=== PATIENT | male | born 1945 | race Caucasian/White ===

== ENCOUNTER 2018-10-03 13:54 | Emergency (ER) | payer MEDICARE, MEDICAID ==
[~2018-10-03] VITALS: Ht 188 cm; Wt 79.4 kg
[2018-10-03 14:10] VITALS: BP 132/65
[2018-10-03] MEDS ORDERED: NKM (14:25)
[2018-10-03] MEDS ORDERED: Ketorolac 30mg Inj IV ONE (14:30)
[2018-10-03] MEDS ORDERED: Isovue-300 100ml vial INJ PRN (14:30)
[2018-10-03 14:41] LABS: BASOPHILS % (AUTO) 0.7 % (0.0-2.0); EOSINOPHILS % (AUTO) 0.3 % (0.0-3.0); HEMATOCRIT 47.4 % (42.0-52.0); HEMOGLOBIN 15.9 G/DL (14.2-18.0); LYMPHOCYTES % (AUTO) 19.1 % (20.0-45.0); MEAN CORPUSCULAR VOLUME 93 FL (80-99); MONOCYTES % (AUTO) 8.7 % (1.0-10.0); NEUTROPHILS % (AUTO) 71.2 % (45.0-75.0); PLATELET COUNT 252 K/UL (150-450); RED BLOOD COUNT 5.11 M/UL (4.70-6.10); RED CELL DISTRIBUTION WIDTH 11.8 % (11.6-14.8); WHITE BLOOD COUNT 9.1 K/UL (4.8-10.8)
[2018-10-03 14:45] LABS: ANION GAP 9 mmol/L (5-15); BLOOD UREA NITROGEN 10 mg/dL (7-18); CALCIUM 8.8 MG/DL (8.5-10.1); CARBON DIOXIDE 27 MMOL/L (21-32); CHLORIDE 99 MMOL/L (98-107); CREATININE 0.8 MG/DL (0.55-1.30); SODIUM 135 MMOL/L (136-145)
[2018-10-03 14:54] LABS: APPEARANCE,URINE CLEAR; BILIRUBIN, URINE NEGATIVE (NEGATIVE); COLOR,URINE BROWN; GLUCOSE, URINE (UA) NEGATIVE (NEGATIVE); KETONES,URINE 3+ (NEGATIVE); LEUKOCYTE ESTERASE ,URINE NEGATIVE (NEGATIVE); NITRITE,URINE NEGATIVE (NEGATIVE); PH,URINE 6 (4.5-8.0); PROTEIN,URINE 1+ (NEGATIVE); UROBILINOGEN,URINE 4 MG/DL (0.0-1.0)
[2018-10-03 14:56] LABS: ALANINE AMINOTRANSFERASE 14 U/L (12-78); ALBUMIN 3.1 G/DL (3.4-5.0); ALBUMIN/GLOBULIN RATIO 0.9 (1.0-2.7); ALKALINE PHOSPHATASE 96 U/L (46-116); ASPARTATE AMINO TRANSFERASE 16 U/L (15-37); BILIRUBIN,DIRECT 0.2 MG/DL (0.0-0.3); BILIRUBIN,TOTAL 1.2 MG/DL (0.2-1.0)
--- NOTE | 2018-10-03 15:24 | Emergency Room Report ---
History of Present Illness General Chief Complaint: Generalized Weakness Source: Patient Present Illness HPI 72-year-old male presents ED for evaluation. Patient states he's been experiencing weakness and dizziness for the last few months. On and off. States he has a poor appetite. Also states that he has a hernia in his left inguinal area. Has been there for "months". States it is getting bigger. Denies fevers or chills. States he's having bowel movements. States that he goes to a clinic and they told him to wear tight fitting pants. Denies chest pain or shortness of breath. Denies fevers or chills. No other aggravating relieving factors. Denies any other associated symptoms Allergies: Coded Allergies: No Known Allergies (Unverified , 10/03/18) Patient History Past Medical History: none Past Surgical History: none Pertinent Family History: none Social History: Denies: smoking, alcohol use, drug use Immunizations: UTD Reviewed Nursing Documentation: PMH: Agreed; PSxH: Agreed Nursing Documentation-PMH Past Medical History: No Stated History Review of Systems All Other Systems: negative except mentioned in HPI Physical Exam Vital Signs Date Time Temp Pulse Resp B/P (MAP) Pulse Ox O2 Delivery O2 Flow Rate FiO2 10/03/18 13:57 98.4 99 16 133/76 91 Room Air Sp02 EP Interpretation: reviewed, normal General Appearance: no apparent distress, alert, GCS 15, non-toxic Head: normocephalic, atraumatic Eyes: bilateral eye normal inspection, bilateral eye PERRL ENT: hearing grossly normal, normal pharynx, no angioedema, normal voice Neck: full range of motion, supple/symm/no masses Respiratory: chest non-tender, lungs clear, normal breath sounds, speaking full sentences Cardiovascular #1: regular rate, rhythm, no edema Cardiovascular #2: 2+ carotid (R), 2+ carotid (L), 2+ radial (R), 2+ radial (L) , 2+ dorsalis pedis (R), 2+ dorsalis pedis (L) Gastrointestinal: normal bowel sounds, soft, non-distended, no guarding, no rebound, tenderness - L inguinal pain/swelling Rectal: deferred Genitourinary: normal inspection, no CVA tenderness Musculoskeletal: back normal, gait/station normal, normal range of motion, non- tender Neurologic: alert, oriented x3, responsive, motor strength/tone normal, sensory intact, speech normal Psychiatric: judgement/insight normal, memory normal, mood/affect normal, no suicidal/homicidal ideation Reflexes: 3+ bicep (R), 3+ bicep (L), 3+ tricep (R), 3+ tricep (L), 3+ knee (R) , 3+ knee (L) Skin: normal color, no rash, warm/dry, well hydrated Lymphatic: no adenopathy Medical Decision Making Diagnostic Impression: Primary Impression: Episode of generalized weakness Additional Impression: Inguinal hernia of left side without obstruction or gangrene ER Course Hospital Course 72-year-old M presents to ED with L inguinal swelling, c/o weakness. Differential diagnosis includes-appendicitis, cholecystitis, small bowel obstruction, gastritis, Clinical course Patient placed on stretcher. After initial history, physical exam reveals male in no acute distress. On exam there is a swelling to the left lower inguinal area. No induration. No erythema. Consistent with hernia. not Reducible. No scrotal pain. After initial history and physical I ordered labs, IV fluids, EKG, CT Labs unremarkable EKGafib CT A/P - left inguinal hernia with small segment of sigmoid. No obstruction or incarceration. No dilated loops of bowel. Discussed findings with the patient. Patient is not vomiting. Having bowel movements. No clinical signs of obstruction. Patient safely discharged at this time. case discussed with Dr Jolley (surgery); agrees that if there is no sign of obstruction on CT and patient is not clinically obstructed he can be discharged with referrals States he does not have a PMD. I'll provide with PMD referrals and surgical referrals I feel this is a highly complex case requiring extensive working including EKG/ Rhythm strip, Xray/CT/US, Blood/urine lab work, repeat exams while in ED, and administration of strong opiates/narcotics for pain control, admission to hospital or close patient follow up. Diagnosis - episode of generalized weakness, inguinal hernia of left side without obstrution or gangree Stable and discharged to home with Rx Tylenol #3, zofran. Followup with PMD/ surgery. Return to ED if symptoms recur or worsen Labs Test 10/03/18 14:25 10/03/18 14:28 White Blood Count 9.1 K/UL (4.8-10.8) Red Blood Count 5.11 M/UL (4.70-6.10) Hemoglobin 15.9 G/DL (14.2-18.0) Hematocrit 47.4 % (42.0-52.0) Mean Corpuscular Volume 93 FL (80-99) Mean Corpuscular Hemoglobin 31.1 PG (27.0-31.0) Mean Corpuscular Hemoglobin Concent 33.5 G/DL (32.0-36.0) Red Cell Distribution Width 11.8 % (11.6-14.8) Platelet Count 252 K/UL (150-450) Mean Platelet Volume 6.2 FL (6.5-10.1) Neutrophils (%) (Auto) 71.2 % (45.0-75.0) Lymphocytes (%) (Auto) 19.1 % (20.0-45.0) Monocytes (%) (Auto) 8.7 % (1.0-10.0) Eosinophils (%) (Auto) 0.3 % (0.0-3.0) Basophils (%) (Auto) 0.7 % (0.0-2.0) Sodium Level 135 MMOL/L (136-145) Potassium Level 4.0 MMOL/L (3.5-5.1) Chloride Level 99 MMOL/L (98-107) Carbon Dioxide Level 27 MMOL/L (21-32) Anion Gap 9 mmol/L (5-15) Blood Urea Nitrogen 10 mg/dL (7-18) Creatinine 0.8 MG/DL (0.55-1.30) Estimat Glomerular Filtration Rate > 60 mL/min (>60) Glucose Level 106 MG/DL (74-106) Calcium Level 8.8 MG/DL (8.5-10.1) Total Bilirubin 1.2 MG/DL (0.2-1.0) Direct Bilirubin 0.2 MG/DL (0.0-0.3) Aspartate Amino Transf (AST/SGOT) 16 U/L (15-37) Alanine Aminotransferase (ALT/SGPT) 14 U/L (12-78) Alkaline Phosphatase 96 U/L (46-116) Total Protein 6.6 G/DL (6.4-8.2) Albumin 3.1 G/DL (3.4-5.0) Globulin 3.5 g/dL Albumin/Globulin Ratio 0.9 (1.0-2.7) Lipase 155 U/L (73-393) Urine Color Brown Urine Appearance Clear Urine pH 6 (4.5-8.0) Urine Specific [place] 1.015 (1.005-1.035) Urine Protein 1+ (NEGATIVE) Urine Glucose (UA) Negative (NEGATIVE) Urine Ketones 3+ (NEGATIVE) Urine Blood 2+ (NEGATIVE) Urine Nitrite Negative (NEGATIVE) Urine Bilirubin Negative (NEGATIVE) Urine Urobilinogen 4 MG/DL (0.0-1.0) Urine Leukocyte Esterase Negative (NEGATIVE) Urine RBC 2-4 /HPF (0 - 0) Urine WBC 0 /HPF (0 - 0) Urine Squamous Epithelial Cells None /LPF (NONE/OCC) Urine Bacteria None /HPF (NONE) Urine Mucus Few /LPF (NONE/OCC) EKG Diagnostic Results Rate: normal Rhythm: other - afib ST Segments: no acute changes ASA given to the pt in ED: No Rhythm Strip Diag. Results EP Interpretation: yes Rhythm: no PVC's, no ectopy CT/MRI/US Diagnostic Results CT/MRI/US Diagnostic Results : Imaging Test Ordered: CT A/P Impression L inguinal hernia with 'knuckle' of sigmoid. no obstruction or incarceration Last Vital Signs Date Time Temp Pulse Resp B/P (MAP) Pulse Ox O2 Delivery O2 Flow Rate FiO2 10/03/18 15:06 98.1 10/03/18 14:10 72 17 Room Air 10/03/18 14:10 132/65 98 Status: improved Disposition: HOME, SELF-CARE Condition: Stable Scripts Ondansetron Odt* (ZOFRAN ODT*) 4 Mg Tab.rapdis 4 MG BC EVERY 6 HOURS PRN for Nausea & Vomiting, #30 TAB 0 Refills Prov: Bari Ramírez MD 10/03/18 Acetaminophen With Codeine (T#3) (TYLENOL #3 TAB*) Y Tab 1 TAB ORAL Q8H PRN for For Pain, #20 TAB Prov: Bari Ramírez MD 10/03/18 Referrals: NOT CHOSEN IPA/,REFERRING (PCP) Bari Ramírez MD Oct 03, 2018 15:24
--- NOTE | 2018-10-03 15:28 | Diagnostic Imaging Report ---
Clinical Indication: Abdominal pain. Left inguinal hernia Technique: No oral contrast utilized, per emergency room physician request IV administration nonionic contrast. Venous phase spiral acquisition obtained through the abdomen and pelvis. Multiplanar reconstructions were generated. Total dose length product 574.01 mGycm. CTDIvol(s) 11.49 mGy. Dose reduction achieved using automated exposure control Comparison: none Findings: Lack of enteric contrast limits assessment of the GI tract. There is a left inguinal hernia, probably a direct inguinal hernia, containing a knuckle of proximal sigmoid colon. This does not appear to result in any obstruction or strangulation, as there is no proximal dilatation and no infiltration of the mesentery within the hernia sac.. There is colonic diverticulosis. No evidence of diverticulitis. The appendix is normal. No small bowel distention. No free or loculated intraperitoneal gas or fluid. Distal esophagus, stomach, duodenum are unremarkable. There is a small fat-containing umbilical hernia. The liver demonstrates a subcentimeter low-attenuation lesion in segment 5 and a few others in segment 3. The gallbladder, bile ducts, pancreas, spleen, adrenals are unremarkable. The kidneys demonstrate bilateral cysts. They also demonstrate bilateral subcentimeter low-attenuation lesions which are too small to characterize no retroperitoneal or mesenteric mass or adenopathy. There is fusiform ectasia of the abdominal aorta which is nonetheless not aneurysmal. 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 The left common iliac artery is ectatic but not quite aneurysmal, measuring 18 mm. No pelvic mass or adenopathy. Prominent prostate. The included lung bases are clear. There is levoscoliosis and secondary degenerative change of the lumbar spine Impression: Limited assessment of the GI tract, due to lack of enteric contrast administration Left inguinal hernia, probably a direct inguinal hernia, containing a knuckle of proximal sigmoid colon. No findings to suggest obstruction or angulation. Colonic diverticulosis. 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 Bilateral subcentimeter low-attenuation renal and hepatic lesions are too small to characterize, most likely benign simple cysts Lumbar scoliosis and secondary degenerative changes Incidental finding small fat-containing umbilical hernia The CT scanner at [facility] is accredited by the [employer] and the scans are performed using protocols designed to limit radiation exposure to as low as reasonably achievable to attain images of sufficient resolution adequate for diagnostic evaluation.
[2018-10-03] MEDS ORDERED: ACETAMINOPHEN-1 EAC1 ORAL (16:01)
[2018-10-03] MEDS ORDERED: ONDANSETRON ODT4 MG BC (16:01)
[2018-10-03 16:58] VITALS: BP 123/71
--- NOTE | 2018-10-05 14:13 | Cardiology Report ---
APPROVED REPORT EKG Measurement Heart [id number] Atrial fibrillation Incomplete right bundle branch block Abnormal ECG
== END 2018-10-03 16:10 | disposition home or self-care (01) ==
LOC: EMR 14:32
DX: K40.90 Unilateral inguinal hernia, without obstruction or gangrene, not specified as recurrent (principal); R53.1 Weakness
CPT/HCPCS: 36415; 74177; 80053; 81003; 82248; 83690; 85025; 93005; 96361; 96374; 96375; 99284; J1885; J2405; Q9967

== ENCOUNTER 2019-06-22 12:33 | Emergency (ER) | payer MEDICARE, MEDICAID ==
[~2019-06-22] VITALS: Ht 175.3 cm; Wt 68.0 kg
[~2019-06-22 12:33] MED LIST: ACETAMINOPHEN-1 EAC1 ORAL; NKM; ONDANSETRON ODT4 MG BC
[2019-06-22 12:49] VITALS: BP 93/77
--- NOTE | 2019-06-22 12:49 | NUR ---
ED Nurse Note: Pt from home brought in by his friend due to multiple episodes of fall and weakness for weeks. Pt reports whenever he stands up he feels dizzy and falls. Friend dulce states pt fell and hit his head on the floor. Pt is AAO x4 and ambulates with his walker at home. No respiratory distress. Able to move all extremities. Noted abrasions on left elbow and left knee. Also observed swelling of left ankle. Some old bruising on upper arms. No hematoma on his head.
[2019-06-22] MEDS ORDERED: NKM (12:55)
[2019-06-22 13:39] LABS: BASOPHILS % (AUTO) 0.9 % (0.0-2.0); EOSINOPHILS % (AUTO) 0.6 % (0.0-3.0); HEMATOCRIT 50.1 % (42.0-52.0); HEMOGLOBIN 16.5 G/DL (14.2-18.0); LYMPHOCYTES % (AUTO) 17.9 % (20.0-45.0); MEAN CORPUSCULAR VOLUME 98 FL (80-99); MONOCYTES % (AUTO) 9.9 % (1.0-10.0); NEUTROPHILS % (AUTO) 70.7 % (45.0-75.0); PLATELET COUNT 205 K/UL (150-450); RED BLOOD COUNT 5.12 M/UL (4.70-6.10); RED CELL DISTRIBUTION WIDTH 12.8 % (11.6-14.8); WHITE BLOOD COUNT 8.9 K/UL (4.8-10.8)
[2019-06-22 13:41] LABS: APPEARANCE,URINE CLEAR; BILIRUBIN, URINE NEGATIVE (NEGATIVE); COLOR,URINE BROWN; GLUCOSE, URINE (UA) NEGATIVE (NEGATIVE); KETONES,URINE 2+ (NEGATIVE); LEUKOCYTE ESTERASE ,URINE 1+ (NEGATIVE); NITRITE,URINE NEGATIVE (NEGATIVE); PH,URINE 5 (4.5-8.0); PROTEIN,URINE 1+ (NEGATIVE); UROBILINOGEN,URINE 1 MG/DL (0.0-1.0)
[2019-06-22 14:17] LABS: ANION GAP 9 mmol/L (5-15); BLOOD UREA NITROGEN 15 mg/dL (7-18); CALCIUM 9.5 MG/DL (8.5-10.1); CARBON DIOXIDE 30 MMOL/L (21-32); CHLORIDE 106 MMOL/L (98-107); CREATININE 0.8 MG/DL (0.55-1.30); POTASSIUM 4.2 MMOL/L (3.5-5.1); SODIUM 145 MMOL/L (136-145)
--- NOTE | 2019-06-22 14:20 | Emergency Room Report ---
History of Present Illness General Chief Complaint: Generalized Weakness Source: Patient Present Illness HPI 73-year-old male history of greater than 30 pack years of smoking, atrial fibrillation, inguinal hernia presents with generalized weakness x2 weeks worsening constant severity is moderate, unknown aggravating alleviating factors , patient last night fell hit his head no LOC, patient denies any chest pain shortness of breath, roommate is concerned because he does not eat, reduced appetite, looks dehydrated patient states he feels weaker than normal but no other complaints Allergies: Coded Allergies: No Known Allergies (Unverified , 10/03/18) Patient History Past Medical History: see triage record Social History: Reports: smoking Reviewed Nursing Documentation: PMH: Agreed; PSxH: Agreed Nursing Documentation-PMH Past Medical History: No History, Except For Hx Cardiac Problems: No Hx Hypertension: No Hx Pacemaker: No Hx Asthma: No - 'Left lung problem' Hx COPD: No Hx Diabetes: No Hx Cancer: No Hx Gastrointestinal Problems: No Hx Dialysis: No History Of Psychiatric Problem: No Hx Neurological Problems: No Hx Cerebrovascular Accident: No Hx Seizures: No Review of Systems All Other Systems: negative except mentioned in HPI Physical Exam Vital Signs Date Time Temp Pulse Resp B/P (MAP) Pulse Ox O2 Delivery O2 Flow Rate FiO2 06/22/19 12:39 98.1 91 18 102/69 (80) 98 Room Air Sp02 EP Interpretation: reviewed, normal General Appearance: no apparent distress, alert, cachetic Head: normocephalic, atraumatic Eyes: bilateral eye PERRL, bilateral eye EOMI ENT: uvula midline, dry mucus membranes Neck: supple, thyroid normal, supple/symm/no masses Respiratory: lungs clear, no respiratory distress, no retraction, no accessory muscle use Cardiovascular #1: normal peripheral pulses, no edema, no gallop, no murmur, tachycardia Gastrointestinal: non tender, soft, no guarding, no rebound Musculoskeletal: normal inspection Neurologic: alert, oriented x3 Psychiatric: mood/affect normal Skin: no rash, warm/dry Medical Decision Making Diagnostic Impression: Primary Impression: Episode of generalized weakness Additional Impressions: Failure to thrive Qualified Codes: R62.7 - Adult failure to thrive Dehydration ER Course 73-year-old male resents with multiple comorbidities, frequent falls, concerning for failure to thrive, dehydration Will rehydrate patient, will admit patient for observation and failure to thrive , patient is very cachectic Patient given 1L NS Will admit patient for observation Patient to be transferred to Dr. Ashby 3:26pm Laboratory Tests Test 06/22/19 13:00 06/22/19 13:15 White Blood Count 8.9 K/UL (4.8-10.8) Red Blood Count 5.12 M/UL (4.70-6.10) Hemoglobin 16.5 G/DL (14.2-18.0) Hematocrit 50.1 % (42.0-52.0) Mean Corpuscular Volume 98 FL (80-99) Mean Corpuscular Hemoglobin 32.2 PG (27.0-31.0) H Mean Corpuscular Hemoglobin Concent 33.0 G/DL (32.0-36.0) Red Cell Distribution Width 12.8 % (11.6-14.8) Platelet Count 205 K/UL (150-450) Mean Platelet Volume 7.8 FL (6.5-10.1) Neutrophils (%) (Auto) 70.7 % (45.0-75.0) Lymphocytes (%) (Auto) 17.9 % (20.0-45.0) L Monocytes (%) (Auto) 9.9 % (1.0-10.0) Eosinophils (%) (Auto) 0.6 % (0.0-3.0) Basophils (%) (Auto) 0.9 % (0.0-2.0) Prothrombin Time 10.8 SEC (9.30-11.50) Prothrombin Time INR 1.0 (0.9-1.1) PTT 28 SEC (23-33) Sodium Level 145 MMOL/L (136-145) Potassium Level 4.2 MMOL/L (3.5-5.1) Chloride Level 106 MMOL/L (98-107) Carbon Dioxide Level 30 MMOL/L (21-32) Anion Gap 9 mmol/L (5-15) Blood Urea Nitrogen 15 mg/dL (7-18) Creatinine 0.8 MG/DL (0.55-1.30) Estimate Glomerular Filtration Rate mL/min (>60) Glucose Level 86 MG/DL (74-106) Calcium Level 9.5 MG/DL (8.5-10.1) Phosphorus Level 3.5 MG/DL (2.5-4.9) Magnesium Level 1.7 MG/DL (1.8-2.4) L Total Bilirubin 1.2 MG/DL (0.2-1.0) H Direct Bilirubin 0.3 MG/DL (0.0-0.3) Aspartate Amino Transferase (AST) 22 U/L (15-37) Alanine Aminotransferase (ALT) 18 U/L (12-78) Alkaline Phosphatase 82 U/L (46-116) Total Creatine Kinase 55 U/L (26-308) Creatine Kinase MB 1.4 NG/ML (0.0-3.6) Creatine Kinase MB Relative Index 2.5 Troponin I 0.000 ng/mL (0.000-0.056) Pro-B-Type Natriuretic Peptide 290 pg/mL (0-125) H Total Protein 7.4 G/DL (6.4-8.2) Albumin 3.5 G/DL (3.4-5.0) Globulin 3.9 g/dL Albumin/Globulin Ratio 0.9 (1.0-2.7) L Lipase 137 U/L (73-393) Thyroid Stimulating Hormone (TSH) 2.312 uiU/mL (0.358-3.740) Free Thyroxine 1.13 NG/DL (0.76-1.46) Free Triiodothyronine 1.7 pg/mL (2.3-4.2) L Urine Color Brown Urine Appearance Clear Urine pH 5 (4.5-8.0) Urine Specific [place] 1.025 (1.005-1.035) Urine Protein 1+ (NEGATIVE) H Urine Glucose (UA) Negative (NEGATIVE) Urine Ketones 2+ (NEGATIVE) H Urine Blood 1+ (NEGATIVE) H Urine Nitrite Negative (NEGATIVE) Urine Bilirubin Negative (NEGATIVE) Urine Urobilinogen 1 MG/DL (0.0-1.0) H Urine Leukocyte Esterase 1+ (NEGATIVE) H Urine RBC 2-4 /HPF (0 - 0) H Urine WBC 0-2 /HPF (0 - 0) Urine Squamous Epithelial Cells Occasional /LPF Urine Bacteria Occasional /HPF (NONE) Urine Mucus Moderate /LPF (NONE/OCC) H EKG Diagnostic Results EKG Time: 12:51 EP Interpretation: Atrial fibrillation, rate 97, QTc 391, no acute ST elevations, normal axis Rhythm Strip Diag. Results Rhythm Strip Time: 14:23 EP Interpretation: yes Rate: 65 Rhythm: no PVC's, other - atrial fib Chest X-Ray Diagnostic Results Chest X-Ray Diagnostic Results : Chest X-Ray Ordered: Yes # of Views/Limited/Complete: 1 View Indication: Other - weakness EP Interpretation: Yes Interpretation: no consolidation, no effusion, no pneumothorax, no acute cardiopulmonary disease Impression: Other - No acute disease, pulmonary nodules left side Electronically Signed by: Melvin Childress MD CT/MRI/US Diagnostic Results CT/MRI/US Diagnostic Results : Impression Ct Head: No acute processes Last Vital Signs Date Time Temp Pulse Resp B/P (MAP) Pulse Ox O2 Delivery O2 Flow Rate FiO2 06/22/19 12:49 80 15 Room Air 06/22/19 12:49 98.1 93/77 96 Disposition: ER [facility] [place] Condition: Stable Referrals: Curt Crowe MD (PCP) Melvin Childress MD Jun 22, 2019 14:20
[2019-06-22 14:32] LABS: ALANINE AMINOTRANSFERASE 18 U/L (12-78); ALBUMIN 3.5 G/DL (3.4-5.0); ALBUMIN/GLOBULIN RATIO 0.9 (1.0-2.7); ALKALINE PHOSPHATASE 82 U/L (46-116); ASPARTATE AMINO TRANSFERASE 22 U/L (15-37); BILIRUBIN,TOTAL 1.2 MG/DL (0.2-1.0); CKMB 1.4 NG/ML (0.0-3.6); CREATINE KINASE 55 U/L (26-308); PHOSPHORUS 3.5 MG/DL (2.5-4.9)
[2019-06-22 14:45] VITALS: BP 120/78
[2019-06-22 14:47] LABS: BILIRUBIN,DIRECT 0.3 MG/DL (0.0-0.3)
--- NOTE | 2019-06-22 15:14 | NUR ---
ED Nurse Note: Pt is sleeping on his bed with no distress. Fall precautions implemented; both side rails up with bed locked in lowest position.
--- NOTE | 2019-06-22 15:16 | Diagnostic Imaging Report ---
Indication: Shortness of breath Technique: One view of the chest Comparison: none Findings: Multiple nodular opacities are seen in the left mid and lower lung, possibly calcified. Lungs are hyperinflated. Lungs and pleural spaces are otherwise clear. The heart size is normal. The aorta is tortuous. Impression: Multiple left lung nodules, possibly calcified granulomata. Consider comparison with prior studies or further evaluation with chest CT as clinically indicated No acute process otherwise
--- NOTE | 2019-06-22 15:47 | Diagnostic Imaging Report ---
Indications: Head trauma, multiple falls due to weakness Technique: Spiral acquisitions obtained through the brain. Angled axial and coronal 5 x 5 mm slices were reconstructed. Total dose length product 1478 mGycm. CTDI vol(s) 7d mGy. Dose reduction achieved using automated exposure control Comparison: 06/22/2019 Findings: There is age-related enlargement of the ventricles and extra axial CSF spaces. There is particular prominence of the extra axial CSF in the left temporal tip. This is probably due to asymmetric volume loss but could also represent a small arachnoid cyst. There is some focal cystic encephalomalacia involving the right temporal tip. There is periventricular deep white matter low-attenuation consistent with chronic microvascular ischemic changes no acute intracranial hemorrhage or edema. No mass effect nor midline shift. There is less orbits are unremarkable. The mastoids are clear. The sinuses are grossly clear. The calvarium is intact Impression: Chronic and age-related changes, as described Negative for acute intracranial bleed or mass effect The CT scanner at [facility] is accredited by the [employer] and the scans are performed using protocols designed to limit radiation exposure to as low as reasonably achievable to attain images of sufficient resolution adequate for diagnostic evaluation.
[2019-06-22 16:18] VITALS: BP 139/86
--- NOTE | 2019-06-22 16:18 | NUR ---
ED Nurse Note: Report given to Leah WARREN of [facility] and [facility] ambulance staff. Pt transferred via gurney with all belongings sent. Stable for transfer.
--- NOTE | 2019-06-23 17:20 | Cardiology Report ---
APPROVED REPORT EKG Measurement Heart [id number] Atrial fibrillation Incomplete right bundle branch block Abnormal ECG
== END 2019-06-22 16:30 | disposition short-term general hospital (02) ==
LOC: EMR 12:54
DX: R62.7 Adult failure to thrive (principal); E86.0 Dehydration; F17.200 Nicotine dependence, unspecified, uncomplicated; I48.91 Unspecified atrial fibrillation; R53.1 Weakness; S09.90XA Unspecified injury of head, initial encounter; W18.30XA Fall on same level, unspecified, initial encounter; Y92.9 Unspecified place or not applicable
CPT/HCPCS: 36415; 70450; 71045; 80053; 81003; 82248; 82550; 82553; 83690; 83735; 83880; 84100; 84439; 84443; 84481; 84484; 85025; 85610; 85730; 87040; 93005; 96360; 99284